=== PATIENT | male | born 1935 | race Caucasian/White ===

== ENCOUNTER → 2021-12-24 | Outpatient (REF) ==
[~2021-12-24] MED LIST: DAYPRO600 MG PO; FLOMAX0.4 MG PO; FOLIC ACID 40400 MCG PO; MAREPA1200 MG PO; MASON NATURAL L20 MG PO
[2021-12-24 15:48] LABS: C-REACTIVE PROTEIN 6.02 mg/dL (0.00-0.50)
[2021-12-25 10:30] LABS: ANA SCREEN with REFLEX Positive (Negative)
== END ==
LOC: ZLAB.STJ 15:11
PROVIDERS: Internal Medicine
DX: M06.9 Rheumatoid arthritis, unspecified (principal)